=== PATIENT | male | born 1950 | race Caucasian/White ===

== ENCOUNTER → 2021-12-24 11:00 | Outpatient (CLI) | payer MEDICARE, SELFPAY ==
--- NOTE | 2021-12-24 | DI.RAD.S_ITS ---
PROCEDURE: FL BARIUM SWALLOW INDICATIONS: Gastro-esophageal reflux disease COMPARISON: None. FINDINGS: Function: There is normal esophageal peristalsis. Mild gastroesophageal reflux. There is obstruction of a calibrated barium tablet at the gastroesophageal junction. Morphology: Air-contrast images demonstrate normal mucosal morphology. Single contrast views show focal narrowing at the GE junction. No extrinsic mass effects, or diverticula. Limited images of the stomach demonstrate normal appearance. IMPRESSION: 1. There is focal narrowing at the gastroesophageal junction and obstruction of a calibrated barium tablet at the GE junction. Recommend upper endoscopy for further evaluation. 2. Mild gastroesophageal reflux. Dictated by: Antony Gómez M.D. on 12/24/2021 at 15:33 Approved by: Antony Gómez M.D. on 12/24/2021 at 15:35
== END ==
PROVIDERS: PCP Family Medicine; Referring Provider Family Medicine; Visit Provider Family Medicine
DX: K21.9 Gastro-esophageal reflux disease without esophagitis (principal); K22.2 Esophageal obstruction
CPT/HCPCS: 74221

== ENCOUNTER → 2022-02-25 13:46 | Outpatient (CLI) | payer MEDICARE, SELFPAY ==
[2022-02-25 14:13] LABS: COVID19 -Nasal RAPID Negative (Negative)
== END ==
PROVIDERS: PCP Family Medicine; Visit Provider Surgery
DX: Z20.822 Contact with and (suspected) exposure to COVID-19 (principal); Z01.812 Encounter for preprocedural laboratory examination
CPT/HCPCS: 87635; C9803

== ENCOUNTER 2022-02-26 07:51 | Day surgery (SDC) | payer MEDICARE, SELFPAY ==
[2022-02-26 08:19] VITALS: BP 141/85; PULSE 75; RESP 16; TEMP 35.8; O2SAT 97; BMI 31.9
--- NOTE | 2022-02-26 08:38 | PM.HP.1 ---
History of Present Illness History of Present Illness Date Patient Seen: 02/26/22 Time Patient Seen: 08:38 Chief complaint: SDC Narrative: I reviewed the January [address] Lang. No significant changes. Patient History Family & Social History Social History: household members spouse Tobacco & Substance use: Smoking Status Never smoker alcohol intake never Substance Use Type does not use Meds Home Medications and Allergies Allergies Allergy/AdvReac Type Severity Reaction Status Date / Time erythromycin base AdvReac Verified 02/26/22 08:18 lisinopril AdvReac Verified 02/26/22 08:18 Review of Systems Review of Systems ROS: Yes All systems reviewed with the patient and are negative except as otherwise documented Exam Vital Signs (past 8 hours): - 02/26/22 08:19 Temperature 96.4 F L Pulse Rate 75 Respiratory Rate 16 Blood Pressure 141/85 H Pulse Oximetry 97 Oxygen Delivery Method Room Air Oxygen Delivery Method Room Air Const General: cooperative HENMT Head: normal to inspection Eyes General: appearance normal, both eyes and all related structures Neck Neck: normal visual inspection Chest Chest: normal inspection of the chest Resp Effort & Inspection: normal respiratory effort Cardio Rate: regular rate GI Inspection: normal to inspection Skin General: no rashes or lesions noted Neuro General: patient alert and patient awake Extrem General: normal to inspection and no pedal edema Psych Appearance: grossly normal Assessment & Plan Assessment & Plan narrative: 71-year-old male with an abnormal esophagram experiencing symptoms of dysphagia mostly to solids. Diagnostic EGD with possible dilatation is pursued today. Time Spent With Patient Critical Care time: I spent a total of [] minutes of critical care time on this patient's care today; this time is exclusive of procedural time.
--- NOTE | 2022-02-26 08:40 | PM.PREOP ---
Pre-operative Note COVID-19 COVID-19 status: Negative Result date/Date tested (Pos, Neg/Pending): 02/25/22 Criteria for continued procedure: Possibility delay results in more complex future surgery or treatment Interval Note History & Physical reviewed/Exam performed by Physician: Yes Changes to H&P: No ASA Class (for procedural sedation): II
[2022-02-26] MEDS: SODIUM CHLORIDE 0.9% 1,000 ML 84 ML IV (08:42)
--- NOTE | 2022-02-26 08:55 | PM.OP.EGD ---
Operative Date/Time/Diagnoses Date of procedure: 02/26/22 Time of procedure: 08:55 Pre-op diagnosis: Dysphagia Post-op diagnosis: same Procedure & Clinicians Study performed: Esophagogastroscopy Same procedure as scheduled: No Indications: Dysphagia Surgeon: Zach Messer Procedure Notes SCOAP/Timeout: Done Procedure in detail: After the risks and benefits were explained, written and verbal informed consent was obtained. The patient was brought into the procedure room and placed into the left lateral decubitus position. Please see nurse plastic manager notes for sedation details. The scope was introduced into the mouth through the bite block and advanced under direct visualization to the stomach. I did not advance further secondary to retained gastric food debris. The scope was slowly withdrawn carefully examining the mucosa for any defects or lesions. Retroflexed views were accomplished in the stomach. The stomach was decompressed, the scope was then removed from the patient who tolerated the procedure well. Sedation minutes: 2 Specimen(s): none sent Complications: none Impression: 1. Duodenum: Not seen 2. Stomach: Retained food debris solid and liquid bile stained. For safety, the scope was removed and we did not advance beyond the region of proximal body. 3. Esophagus: The squamocolumnar junction correlated with top of the gastric folds. GEJ was at about 40 cm from the incisors. I did not appreciate any obvious stricture no mass lesion on brief imaging of this location. No obvious esophagitis. No clear-cut explanation for the patient's reported dysphagia on this limited exam. Endoscopic diagnosis 1. Retained gastric food debris 2. Incomplete EGD Post-procedure Plan for aftercare: 1. Resume proton pump inhibitor (pantoprazole). 2. Repeat EGD is arranged. NPO requirements will be emphasized. The patient had carrot cake at 11:00 p.m. last night. Therefore it would be sosa for him to have no solids after say 5:00 p.m. the day before. Disposition: PACU
[2022-02-26 09:02] VITALS: BP 92/60; PULSE 65; RESP 24; TEMP 36.4; O2SAT 92
[2022-02-26 09:06] VITALS: BP 100/68; PULSE 60; RESP 15; O2SAT 94
[2022-02-26 09:11] VITALS: BP 117/80; PULSE 58; RESP 15; O2SAT 93
[2022-02-26 09:17] VITALS: BP 117/77; PULSE 67; RESP 13; TEMP 37.1; O2SAT 95
[2022-02-26 09:27] VITALS: BP 129/79; PULSE 62; RESP 15; O2SAT 96
--- NOTE | 2022-02-26 09:57 | SUR.PHASEII ---
[id number] left department, instructions reviewed with spouse at the car. Questions answered.
== END 2022-02-26 09:44 | disposition home or self-care (01) ==
PROVIDERS: PCP Family Medicine; Referring Provider Internal Medicine Gastroenterology; Visit Provider Internal Medicine Gastroenterology
PROC: 0DJ08ZZ Inspection of Upper Intestinal Tract, Via Natural or Artificial Opening Endoscopic (ICD-10-PCS; CPT 43235; principal; 2022-02-26 09:00)
DX: R13.10 Dysphagia, unspecified (principal); K21.9 Gastro-esophageal reflux disease without esophagitis; E66.9 Obesity, unspecified; Z68.33 Body mass index [BMI] 33.0-33.9, adult; Z53.09 Procedure and treatment not carried out because of other contraindication
CPT/HCPCS: 43235; J2704